=== PATIENT | female | born 1985 | race Caucasian/White ===

== ENCOUNTER → 2021-03-02 | Outpatient (CLI) | payer OTHER ==
[~2021-03-02] MED LIST: CIPRO250 M1 PO; LEVAQUIN 500 M500 M2 PO; MAVIK1 MG PO; NORCO 5-325 TA1 EACH PO; ORTHO TRI-CYCL1 EACH PO; PREDNISONE50 MG PO; PYRIDIUM200 MG PO; SEASONAL; SEASONALE1 EACH PO; VENTOLIN HFA 1818 GM INH; ZOFRAN ODT4 MG PO
== END ==
LOC: M.ULTRA 11:14
PROVIDERS: ATTEND Nurse Practitioner Family
DX: M79.89 Other specified soft tissue disorders (principal)